=== PATIENT | male | born 1950 | race Caucasian/White ===

== ENCOUNTER 2016-04-08 14:46 | Inpatient (IN) | payer OTHER ==
[~2016-04-08] VITALS: Ht 177.8 cm; Wt 105.8 kg
[2016-04-08 14:59] VITALS: BP 172/104; PULSE 93; RESP 18; TEMP 98.1; O2SAT 95
[2016-04-08] MEDS ORDERED: ONDANSETRON HCL 4 MG/2 ML VIAL IV PUSH ONE (15:30)
[2016-04-08] MEDS ORDERED: MORPHINE SULFATE 4 MG/ML INJ IV PUSH ONE ×2 (15:30→21:45)
[2016-04-08] MEDS ORDERED: TETANUS/DIPHTHERIA TOXOID ADULT 0.5 ML VIAL IM ONE (15:30)
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
[2016-04-08 16:18] LABS: AUTOMATED NEUTROPHIL # 5.9 TH/MM3 (1.8-7.7); BASOPHIL % 0.6 % (0.0-2.0); EOSINOPHIL # 0.1 TH/MM3 (0-0.4); EOSINOPHIL % 1.4 % (0.0-4.0); HEMATOCRIT 38.9 % (39.0-51.0); HEMO FLAGS DIFF FINAL; LYMPH % 14.8 % (9.0-44.0); LYMPHOCYTE # 1.2 TH/MM3 (1.0-4.8); MEAN CELL VOLUME 85.2 FL (80.0-100.0); MEAN CORPUSCULAR HEMOGLOBIN 28.9 PG (27.0-34.0); MEAN CORPUSCULAR HGB CONC 33.9 % (32.0-36.0); MONO % 7.8 % (0.0-8.0); NEUT % 75.4 % (16.0-70.0); PLATELET COUNT 169 TH/MM3 (150-450); RED BLOOD COUNT 4.57 MIL/MM3 (4.50-5.90); RED CELL DISTRIBUTION WIDTH 14.2 % (11.6-17.2); WHITE BLOOD COUNT 7.8 TH/MM3 (4.0-11.0)
[2016-04-08 16:37] LABS: BICARBONATE 25.5 MEQ/L (21.0-32.0); POTASSIUM 3.7 MEQ/L (3.5-5.1)
[2016-04-08 16:38] LABS: APTT (PATIENT) 25.4 SEC (24.3-30.1); PROTHROMBIN TIME - PATIENT 10.6 SEC (9.8-11.6)
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
[2016-04-08] MEDS ORDERED: IOHEXOL 350 MG/ML 10 ML VIAL (for RAD DIAG) IV ONE (17:18)
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
[2016-04-08 19:40] LABS: BLOOD, URINE SMALL (NEG); COMMENT (UR) CULT NOT INDICATED; CULTURE IF INDICATED CULT NOT INDICATED; GLUCOSE,URINE NEG (NEG); KETONE, URINE 10 mg/dL (NEG); MUCUS URINE FEW /lpf (OCC); NITRITE,URINE NEG (NEG); SQUAMOUS EPITHELIAL CELL URINE <1 /hpf (0-5); URINE COLOR YELLOW (YELLW/STRAW)
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
[2016-04-08 20:10] VITALS: BP 102/58; PULSE 76; RESP 18; O2SAT 97
[2016-04-08] MEDS ORDERED: SODIUM CHLOR 0.9% 1000 ML INJ 1,000 ML IV SCH (20:37)
[2016-04-08 20:45] LABS: AUTOMATED NEUTROPHIL # 7.4 TH/MM3 (1.8-7.7); BASOPHIL # 0.1 TH/MM3 (0-0.2); BASOPHIL % 0.5 % (0.0-2.0); EOSINOPHIL # 0.1 TH/MM3 (0-0.4); EOSINOPHIL % 0.5 % (0.0-4.0); HEMATOCRIT 36.1 % (39.0-51.0); HEMO FLAGS DIFF FINAL; LYMPH % 12.2 % (9.0-44.0); LYMPHOCYTE # 1.2 TH/MM3 (1.0-4.8); MEAN CELL VOLUME 85.2 FL (80.0-100.0); MEAN CORPUSCULAR HEMOGLOBIN 28.8 PG (27.0-34.0); MEAN CORPUSCULAR HGB CONC 33.8 % (32.0-36.0); MONO % 8.4 % (0.0-8.0); NEUT % 78.4 % (16.0-70.0); PLATELET COUNT 154 TH/MM3 (150-450); RED BLOOD COUNT 4.23 MIL/MM3 (4.50-5.90); RED CELL DISTRIBUTION WIDTH 14.4 % (11.6-17.2); WHITE BLOOD COUNT 9.4 TH/MM3 (4.0-11.0)
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
[2016-04-08] MEDS ORDERED: CHLORHEXIDINE GLUCONATE 2 % 1 PACK (2 CLOTHS) TOP PRN (21:15)
[2016-04-08] MEDS ORDERED: MISCELLANEOUS NURSING INFORMATION XX SCH (21:15)
[2016-04-08] MEDS ORDERED: SODIUM CHLORIDE 0.9% FLUSH 5 ML FLUSH IVF PRN (21:15)
[2016-04-08] MEDS ORDERED: MAGNESIUM HYDROXIDE SUSP 30 ML CUP PO PRN (21:15)
[2016-04-08] MEDS ORDERED: ONDANSETRON HCL 4 MG/2 ML VIAL IV PRN (21:15)
[2016-04-08 21:30] VITALS: BP 151/77; PULSE 80; RESP 18; O2SAT 98
[2016-04-08] MEDS: ENOXAPARIN SODIUM 30 MG/0.3 ML SYRINGE SQ SCH (22:19)
[2016-04-09] VITALS (7 sets, daily range): BP systolic 130–176; BP diastolic 61–86; PULSE 69–80; RESP 16–19; TEMP 97.1–98.3; O2SAT 96–99
[2016-04-09] MEDS ORDERED: LACTATED RINGER'S 1000 ML IV SCH (00:45)
[2016-04-09] MEDS ORDERED: INSULIN HUMAN REGULAR 1,000 UNITS/10 ML VIAL SQ PRN (00:45)
[2016-04-09] MEDS ORDERED: SODIUM CHLORID 0.9% 500 ML IV SCH (00:45)
[2016-04-09] MEDS: MORPHINE SULFATE 4 MG/ML INJ IV PRN ×8 (00:55→20:29)
[2016-04-09] MEDS: CHLORHEXIDINE GLUCONATE 2 % 1 PACK (2 CLOTHS) TOP SCH (04:00)
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
[2016-04-09] MEDS: ENOXAPARIN SODIUM 30 MG/0.3 ML SYRINGE SQ SCH ×2 (08:37→20:26)
--- NOTE | 2016-04-09 09:54 | RADRPT ---
EXAM DATE/TIME: 04/09/2016 09:31 [place] COMPARISON: WRIST LEFT COMPLETE ([id number]), April 08, 2016, 17:14. INDICATIONS : Left wrist fracture. RADIATION DOSE: 11.61 CTDIvol (mGy) MEDICAL HISTORY : Diabetes mellitus type 2. Hypertension. Cardiovascular disease SURGICAL HISTORY : Appendectomy. ENCOUNTER: Initial ACUITY: 1 day PAIN SCALE: 10/10 LOCATION: Left wrist TECHNIQUE: Volumetric scanning of the wrist was performed. Using automated exposure control and adjustment of t he mA and/or kV according to patient size, radiation dose was kept as low as reasonably achievable to obtain optimal diagnostic quality images. FINDINGS: There is a multipartite intra-articular fracture of the distal radius with transverse components thro ugh the metaphyseal region and longitudinal components which extend into the radiocarpal joint. There is only mild displacement of multiple minor fracture fragments with minimal dorsal tilt of the domin ant distal articular fragment and slight dorsal displacement. The distal ulna is intact. The carpals appear intact. CONCLUSION: Distal left radial fracture as above Pepe Sanchez MD on April 09, 2016 at 9:51 Board Certified Radiologist. This report was verified electronically.
[2016-04-09] MEDS: INSULIN ASPART SUPPLEMENTAL SCALE SQ SCH ×3 (11:00→20:48)
[2016-04-09] MEDS ORDERED: DEXTROSE 50% IN WATER 50 ML VIAL(D50) IV PUSH PRN (11:00)
[2016-04-09] MEDS ORDERED: GLUCAGON 1 MG/ML VIAL OTHER PRN (11:00)
[2016-04-09] MEDS: D5-1/2 NS + KCL 20 MEQ INJ 1,000 ML IV SCH ×2 (12:10→22:55)
--- NOTE | 2016-04-09 13:41 | HHI.PR ---
Subjective Subjective Notes C/o dizziness with standing Awaiting Ortho to eval CT of LEFT wrist to determine if surgical intervention is warranted Objective Vitals/I&O Vital Signs Date Time Temp Pulse Resp B/P Pulse Ox O2 Delivery O2 Flow Rate FiO2 04/09/16 11:06 18 04/09/16 08:00 97.1 73 157/78 98 04/09/16 00:00 Nasal Cannula 2 Labs Laboratory Tests Test 04/08/16 04/08/16 04/08/16 15:45 19:16 20:27 White Blood Count 7.8 9.4 Red Blood Count 4.57 4.23 Hemoglobin 13.2 12.2 Hematocrit 38.9 36.1 Mean Corpuscular Volume 85.2 85.2 Mean Corpuscular Hemoglobin 28.9 28.8 Mean Corpuscular Hemoglobin 33.9 33.8 Concent Red Cell Distribution Width 14.2 14.4 Platelet Count 169 154 Mean Platelet Volume 9.0 8.5 Neutrophils (%) (Auto) 75.4 78.4 Lymphocytes (%) (Auto) 14.8 12.2 Monocytes (%) (Auto) 7.8 8.4 Eosinophils (%) (Auto) 1.4 0.5 Basophils (%) (Auto) 0.6 0.5 Neutrophils # (Auto) 5.9 7.4 Lymphocytes # (Auto) 1.2 1.2 Monocytes # (Auto) 0.6 0.8 Eosinophils # (Auto) 0.1 0.1 Basophils # (Auto) 0.0 0.1 CBC Comment DIFF FINAL DIFF FINAL Differential Comment Prothrombin Time 10.6 Prothromb Time International 1.0 Ratio Activated Partial 25.4 Thromboplast Time Sodium Level 138 Potassium Level 3.7 Chloride Level 103 Carbon Dioxide Level 25.5 Anion Gap 10 Blood Urea Nitrogen 13 Creatinine 0.85 Estimat Glomerular Filtration 91 Rate Random Glucose 145 Calcium Level 8.9 Urine Color YELLOW Urine Turbidity CLEAR Urine pH 5.0 Urine Specific [place] 1.035 Urine Protein TRACE Urine Glucose (UA) NEG Urine Ketones 10 Urine Occult Blood SMALL Urine Nitrite NEG Urine Bilirubin NEG Urine Urobilinogen LESS THAN 2.0 Urine Leukocyte Esterase NEG Urine RBC 6 Urine WBC 2 Urine Squamous Epithelial <1 Cells Urine Mucus FEW Microscopic Urinalysis Comment CULT NOT INDICATED Troponin I LESS THAN 0.02 Blood Type O POSITIVE Antibody Screen NEGATIVE Blood Bank Comment Radiology Last Impressions Upper Extremity CT 04/09/16 0000 Signed Impressions: Service Date/Time: Saturday, April 09, 2016 09:31 - CONCLUSION: Distal left radial fracture as above Pepe Sanchez MD Abdomen X-Ray 04/08/16 1755 Signed Impressions: Service Date/Time: Friday, April 08, 2016 18:20 - CONCLUSION: No free air. Nonspecific, nonobstructive bowel gas pattern. Pepe Costa MD Wrist X-Ray 04/08/16 1521 Signed Impressions: Service Date/Time: Friday, April 08, 2016 17:14 - CONCLUSION: Comminuted and impacted intra-articular fracture of the distal left radius. Pepe Costa MD Head CT 04/08/16 1521 Signed Impressions: Service Date/Time: Friday, April 08, 2016 16:56 - CONCLUSION: No bleed or other acute intracranial abnormality. Posterior parietal scalp contusion. Pepe Costa MD Chest X-Ray 04/08/16 1521 Signed Impressions: Service Date/Time: Friday, April 08, 2016 17:12 - CONCLUSION: No evidence of acute cardiopulmonary disease. Pepe Costa MD Cervical Spine CT 04/08/16 1521 Signed Impressions: Service Date/Time: Friday, April 08, 2016 16:56 - CONCLUSION: 1. No acute fracture or subluxation of the cervical spine. 2. Old C7 posterior spinous process fracture. 3. Multilevel degenerative changes as above. Pepe Costa MD Ankle X-Ray 04/08/16 1521 Signed Impressions: Service Date/Time: Friday, April 08, 2016 17:15 - CONCLUSION: Lateral sprain with small lateral malleolus avulsion fracture fragments and soft tissue swelling. Pepe Costa MD Chest CT 04/08/16 0000 Signed Impressions: Service Date/Time: Friday, April 08, 2016 17:03 - CONCLUSION: 1. No acute thoracic abnormality demonstrated. 2. Fatty infiltrated liver. Pepe Costa MD Abdomen/Pelvis CT 04/08/16 0000 Signed Impressions: Service Date/Time: Friday, April 08, 2016 18:24 - CONCLUSION: 1. Lateral abdominal wall hematoma on the right. No fracture or definite muscle tear. 2. No acute abnormality within the abdominal or pelvic cavity. 3. Fatty liver. Pepe Costa MD Narrative Exam GENERAL: 65 year old well-developed, well-nourished male lying in bed. SKIN: Warm and dry. HEAD: Normocephalic. ENT: No nasal bleeding or discharge. Mucous membranes pink and moist. NECK: Trachea midline. No JVD. CARDIOVASCULAR: Regular rate and rhythm. RESPIRATORY: No accessory muscle use. Lungs clear to auscultation. GASTROINTESTINAL: Abdomen soft, non-tender, nondistended. + BS. MUSCULOSKELETAL: Extremities without cyanosis, or edema. KATZ. LEFT arm, soft cast in place. NEUROLOGICAL: Awake and alert. Normal speech. A/P Assessment and Plan INJURIES: C7 chronic spinous process fx Abdominal wall hematoma LEFT distal radius fx LEFT malleolus avulsion fx (non-op) PMHx: DM, Neuropathy Diet: NPO, advanced to 1800 ADA Pulm: IS ordered Pain: Morphine IV Activity: BR. PT and OT ordered. GI: Famotidine PO Bowel: Colace, MOM DVT: SCD's, Lovenox Ortho ordered F/U CT of the LEFT radius today to eval for surgical intervention vs conservative management. Awaiting fx boot so patient can BWAT to LEFT leg. Hold Metformin x [address] Added D5 1/2 NS with 20KCl @ 84 mL/H, while NPO. Accu checks AC HS with sliding scale coverage. CM consulted for discharge planning. Plan of care discussed with patient and family at bedside. Patient is stable on Med/Surg floor. Attending Statement The exam, history, and the medical decision-making described in the above note were completed with the assistance of the mid-level provider. I reviewed and agree with the findings presented. I attest that I had a [id number] encounter with the patient on the same day, and personally performed and documented my assessment and findings in the medical record. Zelalem Delgadillo Apr 09, 2016 13:41 Tommy Mata MD Apr 12, 2016 14:25
[2016-04-09] MEDS: FAMOTIDINE 20 MG TAB PO SCH ×2 (14:01→20:25)
[2016-04-09] MEDS ORDERED: WALKER WHEELS/F1 MIS (19:26)
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
[2016-04-09] MEDS: DOCUSATE SODIUM 100 MG CAP PO SCH (20:25)
--- NOTE | 2016-04-09 23:51 | EKG ---
Date Performed: 04/08/2016 Time Performed: 20:08:03 PTAGE: 65 years EKG: Sinus rhythm LEFT ANTERIOR FASCICULAR BLOCK POSSIBLE LEFT VENTRICULAR HYPERTROPHY NONSPECIFIC T-WAVE ABNORMALITY ABNORMAL ECG NO PREVIOUS TRACING DOCTOR: Anay Del Rio Interpretating Date/Time 04/09/2016 23:45:29
--- NOTE | 2016-04-09 23:58 | EKG ---
Date Performed: 04/08/2016 Time Performed: 15:43:16 PTAGE: 65 years EKG: Sinus rhythm LEFT ANTERIOR FASCICULAR BLOCK LEFT VENTRICULAR HYPERTROPHY AND ST-T CHANGE ABNORMAL ECG NO PREVIOUS TRACING DOCTOR: Anay Del Rio Interpretating Date/Time 04/09/2016 23:49:48
[2016-04-10 00:01] VITALS: BP 155/72; PULSE 75; RESP 16; TEMP 99.1; O2SAT 99
[2016-04-10 04:00] VITALS: BP 168/76; PULSE 71; RESP 19; TEMP 98.9; O2SAT 96
[2016-04-10] MEDS: CHLORHEXIDINE GLUCONATE 2 % 1 PACK (2 CLOTHS) TOP SCH (04:00)
[2016-04-10] MEDS: INSULIN ASPART SUPPLEMENTAL SCALE SQ SCH ×4 (06:00→20:59)
--- NOTE | 2016-04-10 07:02 | PD.ORT.PN ---
Subjective Subjective Remarks Resting comfortably no new complaints Objective Vitals Vital Signs Date Time Temp Pulse Resp B/P Pulse Ox O2 Delivery O2 Flow Rate FiO2 04/10/16 04:00 98.9 71 19 168/76 96 04/10/16 00:01 99.1 75 16 155/72 99 04/09/16 19:00 97.6 73 19 176/80 99 04/09/16 17:07 18 04/09/16 15:38 97.2 73 18 161/77 98 04/09/16 12:35 98.0 69 18 155/69 96 04/09/16 08:00 97.1 73 18 157/78 98 I/O 04/09/16 04/09/16 04/09/16 04/10/16 04/10/16 04/10/16 06:59 14:59 22:59 06:59 14:59 22:59 Intake Total 0 ml 960 ml 688 ml Output Total 400 ml 2200 ml Balance -400 ml -1240 ml 688 ml Intake Oral 0 ml 960 ml 240 ml IV Total 448 ml Output Urine Total 400 ml 2200 ml # Voids 2 # Bowel Movements 0 0 0 Result Diagram: 04/08/16202604/08/16 1545 Imaging Last 72 hours Impressions Upper Extremity CT 04/09/16 0000 Signed Impressions: Service Date/Time: Saturday, April 09, 2016 09:31 - CONCLUSION: Distal left radial fracture as above Pepe Sanchez MD Abdomen X-Ray 04/08/16 1755 Signed Impressions: Service Date/Time: Friday, April 08, 2016 18:20 - CONCLUSION: No free air. Nonspecific, nonobstructive bowel gas pattern. Pepe Costa MD Wrist X-Ray 04/08/16 1521 Signed Impressions: Service Date/Time: Friday, April 08, 2016 17:14 - CONCLUSION: Comminuted and impacted intra-articular fracture of the distal left radius. Pepe Costa MD Head CT 04/08/16 1521 Signed Impressions: Service Date/Time: Friday, April 08, 2016 16:56 - CONCLUSION: No bleed or other acute intracranial abnormality. Posterior parietal scalp contusion. Pepe Costa MD Chest X-Ray 04/08/16 1521 Signed Impressions: Service Date/Time: Friday, April 08, 2016 17:12 - CONCLUSION: No evidence of acute cardiopulmonary disease. Pepe Costa MD Cervical Spine CT 04/08/16 1521 Signed Impressions: Service Date/Time: Friday, April 08, 2016 16:56 - CONCLUSION: 1. No acute fracture or subluxation of the cervical spine. 2. Old C7 posterior spinous process fracture. 3. Multilevel degenerative changes as above. Pepe Costa MD Ankle X-Ray 04/08/16 1521 Signed Impressions: Service Date/Time: Friday, April 08, 2016 17:15 - CONCLUSION: Lateral sprain with small lateral malleolus avulsion fracture fragments and soft tissue swelling. Pepe Costa MD Chest CT 04/08/16 0000 Signed Impressions: Service Date/Time: Friday, April 08, 2016 17:03 - CONCLUSION: 1. No acute thoracic abnormality demonstrated. 2. Fatty infiltrated liver. Pepe Costa MD Abdomen/Pelvis CT 04/08/16 0000 Signed Impressions: Service Date/Time: Friday, April 08, 2016 18:24 - CONCLUSION: 1. Lateral abdominal wall hematoma on the right. No fracture or definite muscle tear. 2. No acute abnormality within the abdominal or pelvic cavity. 3. Fatty liver. Pepe Costa MD Objective Remarks Left upper extremity: Splint intact. No pain with shoulder range of motion. Distally intact sensation over the radial ulnar and median nerve distributions with good capillary refills. He is able to extend his fingers and is able to make a fist. Right upper extremity: Full range of motion and neurovascularly intact Right lower extremity: Full range of motion and neurovascularly intact Left lower extremity: Full range of motion of hip and knee. Fracture boot in place. Mild swelling over ankle. Pain over lateral ankle. Minimal tenderness over deltoid ligament. Distally intact sensation good capillary refills Assessment & Plan Assessment and Plan Left distal radius fracturenonoperative treatment. Due to appropriate alignment of comminuted fracture of distal radius we will continue to treat this conservatively with sugar tong splint and nonweightbearing on the left upper extremity. He may use a platform walker to help ambulate. Lateral ankle sprain with avulsion fracture - Fracture boot and weightbearing as tolerated Once cleared with physical therapy and medical he may be discharged home Follow-up with Dr. Walls or RADHA in 2 weeks and at that point we will do repeat x -rays and evaluate continued alignment of wrist BRITNEY CID PA-C Apr 10, 2016 07:02
[2016-04-10] MEDS ORDERED: HYDR-3288 PO (07:06)
[2016-04-10] MEDS ORDERED: ACETAMINOPHEN/HYDROcodone 325 MG/7.5 MG TAB PO PRN ×2 (07:15)
[2016-04-10 08:00] VITALS: BP 170/86; PULSE 70; RESP 16; TEMP 96.3; O2SAT 97
[2016-04-10] MEDS ORDERED: LACTULOSE SYRUP 20 GM/30 ML CUP PO ONE (08:15)
[2016-04-10] MEDS ORDERED: ENALAPRILAT 1.25 MG/ML VIAL IV PUSH PRN (08:15)
[2016-04-10] MEDS: FAMOTIDINE 20 MG TAB PO SCH ×2 (08:59→20:59)
[2016-04-10] MEDS: DOCUSATE SODIUM 100 MG CAP PO SCH ×2 (08:59→20:58)
[2016-04-10] MEDS: ENOXAPARIN SODIUM 30 MG/0.3 ML SYRINGE SQ SCH ×2 (08:59→20:58)
[2016-04-10] MEDS: D5-1/2 NS + KCL 20 MEQ INJ 1,000 ML IV SCH ×2 (10:50→22:45)
[2016-04-10] MEDS ORDERED: oxyCODONE/ACETAMINOPHEN 5 MG/325 MG TAB PO PRN (11:15)
[2016-04-10] MEDS ORDERED: LACTATED RINGER'S 1000 ML INJ 1,000 ML IV ONE (11:15)
[2016-04-10] MEDS ORDERED: PERC5TAB12 PO (11:22)
[2016-04-10 12:00] VITALS: BP 185/89; PULSE 63; RESP 16; TEMP 96.7; O2SAT 96
[2016-04-10] MEDS ORDERED: DOCU1CAP39 PO (15:17)
[2016-04-10] MEDS ORDERED: MILKSUS PO (15:17)
[2016-04-10 16:00] VITALS: BP 158/78; PULSE 68; RESP 16; TEMP 98.1; O2SAT 98
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
[2016-04-10] MEDS: oxyCODONE/ACETAMINOPHEN 5 MG/325 MG TAB PO PRN ×2 (17:14→21:10)
[2016-04-10 20:00] VITALS: BP 136/66; PULSE 69; RESP 18; TEMP 98; O2SAT 96
[2016-04-11] VITALS: BP 151/81; PULSE 63; RESP 18; TEMP 96.4; O2SAT 97
[2016-04-11 04:00] VITALS: BP 156/73; PULSE 73; RESP 18; TEMP 98.1; O2SAT 95
[2016-04-11] MEDS: CHLORHEXIDINE GLUCONATE 2 % 1 PACK (2 CLOTHS) TOP SCH (04:00)
[2016-04-11] MEDS: oxyCODONE/ACETAMINOPHEN 5 MG/325 MG TAB PO PRN ×2 (05:20→11:34)
[2016-04-11] MEDS: INSULIN ASPART SUPPLEMENTAL SCALE SQ SCH ×2 (05:21→11:25)
[2016-04-11 08:00] VITALS: BP 126/69; PULSE 72; RESP 18; TEMP 97.5; O2SAT 95
[2016-04-11] MEDS: ENOXAPARIN SODIUM 30 MG/0.3 ML SYRINGE SQ SCH (09:10)
[2016-04-11] MEDS: DOCUSATE SODIUM 100 MG CAP PO SCH (09:10)
[2016-04-11] MEDS: FAMOTIDINE 20 MG TAB PO SCH (09:10)
[2016-04-11] MEDS: D5-1/2 NS + KCL 20 MEQ INJ 1,000 ML IV SCH (10:40)
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
== END 2016-04-11 13:08 | disposition home or self-care (01) | DRG 563 ==
LOC: NEPC 14:46 → NEDA 21:36 → N06B 04-09 00:06
PROVIDERS: ADMIT Surgery; ATTEND Surgery
DX: S82.62XA Displaced fracture of lateral malleolus of left fibula, initial encounter for closed fracture (principal); S52.572A Other intraarticular fracture of lower end of left radius, initial encounter for closed fracture; E11.40 Type 2 diabetes mellitus with diabetic neuropathy, unspecified; S12.600 Unspecified displaced fracture of seventh cervical vertebra; V28.4XXA Motorcycle driver injured in noncollision transport accident in traffic accident, initial encounter; Y92.410 Unspecified street and highway as the place of occurrence of the external cause; Y93.89 Activity, other specified; M54.2 Cervicalgia; S30.1XXA Contusion of abdominal wall, initial encounter; R61 Generalized hyperhidrosis; R42 Dizziness and giddiness; H53.8 Other visual disturbances; S00.03XA Contusion of scalp, initial encounter; J45.909 Unspecified asthma, uncomplicated; S93.402A Sprain of unspecified ligament of left ankle, initial encounter; R53.1 Weakness
CPT/HCPCS: 70450; 71010; 71260; 72125; 73110; 73200; 73610; 74000; 74176; 76937; 80048; 81001; 82948; 84484; 85025; 85610; 85730; 86850; 86900; 86901; 90471; 90714; 93005; 94150; 96361; 96374; 96375; J1650; J1815; J2270; J2405; J3480; J7030; J7120; L2114; Q9967